=== PATIENT | female | born 1985 | race Caucasian/White ===

== ENCOUNTER → 2016-08-10 | Outpatient (REF) | payer OTHER ==
[~2016-08-10] MED LIST: MOTR200T44 PO; NEXI40CA PO; PERC5TAB6 PO; PRENTAB55 PO
== END ==
LOC: M LAB REF 12:09
PROVIDERS: ATTEND Physician Assistant
DX: N39.0 Urinary tract infection, site not specified (principal)

== ENCOUNTER 2017-04-06 05:48 | Emergency (ER) | payer OTHER ==
[2017-04-06 06:47] LABS: PROTEIN, URINE MANUAL REFLEX 3+ mg/dL (NEGATIVE)
[2017-04-06 06:48] LABS: BILIRUBIN, URINE MANUAL NEGATIVE (NEGATIVE); BLOOD URINE MANUAL RFX POSITIVE (NEGATIVE); GLUCOSE, URINE (UA) MANUAL NEGATIVE (NEGATIVE); KETONE, URINE MANUAL NEGATIVE (NEGATIVE); MICROSCOPIC INDICATED? RFX YES (NO); NITRITE, URINE MANUAL RFX TRACE (NEGATIVE); UROBILINOGEN, URINE MANUAL NORMAL (NORMAL)
[2017-04-06 06:49] LABS: BACTERIA, URINE MOD AMOUNT; HYALINE CAST, URINE NONE SEEN /lpf (0-1); MICROSCOPIC EXAM PERFORMED; RBC, URINE TNTC /hpf (0-3); SQUAMOUS EPITHELIAL CELL URINE MOD AMOUNT /hpf (SMALL AMT); WBC, URINE MAN RFX TNTC /hpf (0-3)
[2017-04-06] MEDS: PHENAZOPYRIDINE 100 MG TAB PO (06:54)
[2017-04-06] MEDS: NITROFURANTOIN (MACROBID) 100 MG CAP PO (06:54)
== END 2017-04-06 06:56 | disposition home or self-care (01) ==
LOC: M ED 05:48
DX: N30.91 Cystitis, unspecified with hematuria (principal); R56.9 Unspecified convulsions; Z79.899 Other long term (current) drug therapy; Z88.8 Allergy status to other drugs, medicaments and biological substances
CPT/HCPCS: 81000

== ENCOUNTER 2017-10-30 10:53 | Day surgery (SDC) | payer OTHER ==
[2017-10-30] MEDS: NS 1,000 ML IV (11:26)
[2017-10-30] MEDS ORDERED: diphenhydrAMINE INJ 50MG/ML VIAL (J1200) As Ordered (11:33)
[2017-10-30] MEDS ORDERED: LIDOCAINE 2% INJ 100 MG/5 ML SDV (FOR ANES.) As Ordered (11:34)
[2017-10-30] MEDS ORDERED: PROPOFOL 200 MG/20 ML VIAL As Ordered ×2 (11:34→12:19)
== END 2017-10-30 12:41 | disposition home or self-care (01) ==
LOC: M OPP 10:53
DX: K21.9 Gastro-esophageal reflux disease without esophagitis (principal); K31.89 Other diseases of stomach and duodenum; K29.70 Gastritis, unspecified, without bleeding; R12 Heartburn; Z88.8 Allergy status to other drugs, medicaments and biological substances; Z79.899 Other long term (current) drug therapy; Z80.52 Family history of malignant neoplasm of bladder; Z80.3 Family history of malignant neoplasm of breast; Z80.8 Family history of malignant neoplasm of other organs or systems
CPT/HCPCS: 91035

== ENCOUNTER → 2018-01-10 | Outpatient (REF) | payer OTHER | LOC: M LAB REF 13:32 | DX: N39.0 Urinary tract infection, site not specified (principal) ==

== ENCOUNTER → 2019-02-02 | Outpatient (REF) | payer OTHER ==
[~2019-02-02] MED LIST changes: +MACR100C43 PO; +MULT1TAB18 PO; +NITR100C2 PO; +PERC5TAB12 PO; -PERC5TAB6 PO; +PYRI1TAB5 PO; +ZANT150T40 PO
== END ==
LOC: M LAB REF 18:57
PROVIDERS: ATTEND Physician Assistant Medical
DX: N39.0 Urinary tract infection, site not specified (principal)

== ENCOUNTER 2019-02-04 09:29 | Emergency (ER) | payer OTHER ==
[~2019-02-04] VITALS: Ht 167.6 cm; Wt 61.8 kg
[~2019-02-04 09:29] MED LIST changes: -MACR100C43 PO
[2019-02-04 09:30] VITALS: BP 134/79
[2019-02-04] MEDS ORDERED: MACR100C43 PO (09:35)
[2019-02-04 10:28] LABS: BASO % 0.5 % (0.0-1.0); EOS # 0.1 10^3/uL (0.0-0.5); EOS % 1.3 % (0.0-3.0); HEMATOCRIT 42.3 % (36.0-47.0); LYMPH # 1.2 10^3/uL (1.5-5.0); LYMPH % 19.7 % (24.0-44.0); MEAN CORPUSCULAR HEMOGLOBIN 33.3 pg (27.0-33.0); MEAN CORPUSCULAR HGB CONC 33.1 g/dl (32.0-36.5); MEAN CORPUSCULAR VOLUME 100.5 fl (80.0-96.0); MONO # 0.5 10^3/uL (0.0-0.8); MONO % 7.3 % (0.0-5.0); NEUTROPHILS # 4.4 10^3/uL (1.5-8.5); NEUTROPHILS % 70.9 % (36.0-66.0); PLATELET COUNT, AUTOMATED 282 10^3/uL (150-450); RED BLOOD COUNT 4.21 10^6/uL (4.00-5.40); WHITE BLOOD COUNT 6.2 10^3/uL (4.0-10.0)
[2019-02-04 10:57] LABS: ALT/SGPT 18 U/L (12-78); BILIRUBIN,TOTAL 0.4 MG/DL (0.2-1.0); BLOOD UREA NITROGEN 8 MG/DL (7-18); CALCIUM LEVEL 8.9 MG/DL (8.5-10.1); CARBON DIOXIDE LEVEL 24 MEQ/L (21-32); CHLORIDE LEVEL 107 MEQ/L (98-107); GLOMERULAR FILTRATION RATE > 60.0 (>60); GLUCOSE, FASTING 109 MG/DL (70-100); SODIUM LEVEL 141 MEQ/L (136-145); TOTAL PROTEIN 7.4 GM/DL (6.4-8.2)
[2019-02-04 11:17] LABS: HEPATITIS B SURFACE ANTIBODY POSITIVE (POSITIVE)
[2019-02-04 11:27] LABS: HEPATITIS B SURFACE ANTIGEN NEGATIVE (NEGATIVE)
[2019-02-04 11:56] LABS: HEPATITIS C VIRUS ABY INDEX 0.2 INDEX (<0.8)
[2019-02-04 19:36] LABS: HCG, SERUM QUALITATIVE NEGATIVE (NEGATIVE)
== END 2019-02-04 10:28 | disposition home or self-care (01) ==
LOC: M ED 09:29
DX: Z77.21 Contact with and (suspected) exposure to potentially hazardous body fluids (principal)

== ENCOUNTER → 2019-02-11 | Outpatient (REF) | payer OTHER ==
[~2019-02-11] MED LIST changes: +MACR100C43 PO
== END ==
LOC: M LAB REF 13:17
PROVIDERS: ATTEND Physician Assistant
DX: N39.0 Urinary tract infection, site not specified (principal)

== ENCOUNTER → 2019-03-02 | Outpatient (CLI) | payer OTHER ==
--- NOTE | 2019-03-03 03:00 | REP ---
Clinical: Pelvic and perineal pain. Technique: Transabdominal pelvic ultrasound followed by transvaginal examination for better evaluation of the endometrium and adnexa with color Doppler evaluation of the ovaries. Findings: Normal anteverted uterus measures 7.7 x 4.8 x 5.5 cm. Endometrial complex measures 11 mm thickness. A small 7 mm endometrial polyp cannot definitively be excluded. The bilateral ovaries are normal in appearance and vascularity without torsion. Right ovary measures 2.3 x 1.6 x 2.5 cm (RI 0.65). Left ovary measures 2.5 x 2.3 x 2.7 cm (RI 0.66). Bladder is normal and measures 11.2 x 7.4 x 10.3 cm. Impression: 1. Relatively normal examination although small 7 mm endometrial polyp versus focal hyperplasia cannot be excluded. Electronically Signed by Juan Hearn MD 03/03/2019 02:51 A
== END ==
LOC: M RAD 10:57
PROVIDERS: ATTEND Obstetrics & Gynecology
DX: R10.2 Pelvic and perineal pain (principal)

== ENCOUNTER 2019-04-06 12:48 | Day surgery (SDC) | payer OTHER ==
[~2019-04-06] VITALS: Ht 167.6 cm; Wt 61.4 kg
[~2019-04-06 12:48] MED LIST changes: +LR 1,000 ML IV ONE; +MULTCAP PO
[2019-04-06 13:54] LABS: HEMATOCRIT 39.2 % (36.0-47.0); HEMOGLOBIN 13.1 g/dl (12.0-15.5); MEAN CORPUSCULAR HGB CONC 33.4 g/dl (32.0-36.5); MEAN CORPUSCULAR VOLUME 98.7 fl (80.0-96.0); PLATELET COUNT, AUTOMATED 297 10^3/uL (150-450); RED BLOOD COUNT 3.97 10^6/uL (4.00-5.40); WHITE BLOOD COUNT 6.3 10^3/uL (4.0-10.0)
[2019-04-06 14:18] LABS: BLOOD UREA NITROGEN 11 MG/DL (7-18); CARBON DIOXIDE LEVEL 28 MEQ/L (21-32); CHLORIDE LEVEL 111 MEQ/L (98-107); CREATININE FOR GFR 0.84 MG/DL (0.55-1.30); GLOMERULAR FILTRATION RATE > 60.0 (>60); GLUCOSE, FASTING 88 MG/DL (70-100); POTASSIUM SERUM 4.1 MEQ/L (3.5-5.1); SODIUM LEVEL 142 MEQ/L (136-145)
[2019-04-06] MEDS ORDERED: fentaNYL 100 MCG/2 ML INJECTION (J3010) As Ordered ONE (15:58)
[2019-04-06] MEDS ORDERED: METOCLOPRAMIDE INJ 10MG/2ML VIAL (J2765) As Ordered ONE (15:58)
[2019-04-06] MEDS ORDERED: ONDANSETRON 4MG/2ML VIAL (J2405) As Ordered ONE (15:58)
[2019-04-06] MEDS ORDERED: KETOROLAC 60 MG/2 ML VIAL (J1885) As Ordered ONE (15:58)
[2019-04-06] MEDS ORDERED: LIDOCAINE 2% INJ 100 MG/5 ML SDV (FOR ANES.) As Ordered ONE (15:58)
[2019-04-06] MEDS ORDERED: ACETAMINOPHEN 1000MG 100ML IV BTL (OFIRMEV) (J0131 PER 10MG) As Ordered ONE (15:58)
[2019-04-06] MEDS ORDERED: MIDAZOLAM INJ 2 MG/2 ML VIAL (J2250) As Ordered ONE (15:58)
[2019-04-06] MEDS ORDERED: propofoL 200 MG/20 ML VIAL As Ordered ONE (15:58)
[2019-04-06] MEDS ORDERED: dexameTHASONE 4 MG/ML 1ML VIAL (J1100) As Ordered ONE (15:58)
[2019-04-06] MEDS ORDERED: DESFLURANE 240 ML INHALANT As Ordered ONE (16:09)
[2019-04-06] MEDS ORDERED: KETOROLAC 30 MG/ML VIAL (J1885) IV PRN (16:15)
[2019-04-06] MEDS ORDERED: LR 1,000 ML IV SCH ×2 (16:18→16:30)
[2019-04-06] MEDS ORDERED: PERCOCET PO (16:22)
[2019-04-06] MEDS ORDERED: oxyCODONE 5MG TAB As Ordered ONE (16:28)
[2019-04-06] MEDS ORDERED: PERCOCET 5MG/325MG TAB PO PRN ×2 (16:30)
[2019-04-06] MEDS ORDERED: fentaNYL 100 MCG/2 ML INJECTION (J3010) IV PRN (16:30)
[2019-04-06] MEDS ORDERED: ONDANSETRON 4MG/2ML VIAL (J2405) IV PRN (16:30)
[2019-04-06] MEDS ORDERED: METOCLOPRAMIDE INJ 10MG/2ML VIAL (J2765) IV PRN (16:30)
[2019-04-06] MEDS ORDERED: oxyCODONE 5MG TAB PO PRN (16:45)
[2019-04-06 17:25] VITALS: BP 117/57
[2019-04-07] MEDS ORDERED: IBUPROFEN 800 MG TAB PO SCH
--- NOTE | 2019-04-07 10:28 | RO ---
DATE OF PROCEDURE: 04/06/2019 Rupinder is a 33-year-old female with extensive history of heavy and prolonged cycle with an endometrial polyp on ultrasound. After counseling. a decision was made for dilation and curettage (D and C), hysteroscopy and NovaSure ablation. PREOPERATIVE DIAGNOSIS: 1. Heavy and prolonged menstrual cycle. 2. Endometrial polyp. POSTOPERATIVE DIAGNOSIS: 1. Heavy and prolonged menstrual cycle. 2. Endometrial polyp. PROCEDURE 1. D and C. 2. Hysteroscopy. 3. NovaSure endometrial ablation. SURGEON: Dr. Porfirio Olivares DIALYSIS EQUIPMENT TECHNICIAN: ANESTHESIA: General. COMPLICATIONS: None. ESTIMATED BLOOD LOSS: Less than 10 mL. FINDINGS: Normal uterine cavity, no evidence of endometrial polyp. PROCEDURE: After obtaining informed consent, the patient was taken to the operating room where anesthetic was found to be adequate. She was then draped and prepped in the usual sterile fashion in the dorsal lithotomy position. At this point, a straight catheter of the bladder was performed for approximately 100 mL of clear urine. A weighted speculum was placed. Using a Membreno retractor, the anterior lip of the cervix was then grasped with a single-tooth tenaculum. The uterus was sounded to approximately 7-8 cm in size, giving a cavity length of 5. The cervix was serially dilated. A hysteroscope was inserted with the above-noted findings. At this point, the hysteroscope was removed. A sharp curettage of the endometrial lining was done and the NovaSure device was then inserted. The cavity length was set to 5, the cavity width to 3.9. A cavity test was performed and the endometrial ablation cycle was then started. The cycle lasted less than 60 seconds. Good ablative process noted. Good hemostasis noted. The patient tolerated the procedure well. She was then transferred to the recovery room in stable condition.
== END 2019-04-06 17:30 | disposition home or self-care (01) ==
LOC: M SDC 12:48
PROVIDERS: ATTEND Obstetrics & Gynecology
DX: N92.1 Excessive and frequent menstruation with irregular cycle (principal); Z87.891 Personal history of nicotine dependence
CPT/HCPCS: 36415; 58563; 80048; 81025; 85027; 86850; 86900; 86901; 88305; J0131; J1100; J1885; J2250; J2405; J2765; J3010

== ENCOUNTER → 2019-06-22 | Outpatient (REF) | payer OTHER ==
[~2019-06-22] MED LIST changes: -LR 1,000 ML IV ONE; +PERCOCET PO
[2019-06-22 18:47] LABS: APPEARANCE, URINE CLEAR (CLEAR); BACTERIA, URINE AUTO 1+ (NEGATIVE); BILIRUBIN, URINE AUTO NEGATIVE (NEGATIVE); BLOOD, URINE BLOOD NEGATIVE (NEGATIVE); COLOR, URINE YELLOW (YELLOW); GLUCOSE, URINE (UA) AUTO NEGATIVE (NEGATIVE); KETONE, URINE AUTO TRACE mg/dL (NEGATIVE); LEUKOCYTE ESTERASE, URINE AUTO NEGATIVE (NEGATIVE); NITRITE, URINE AUTO NEGATIVE (NEGATIVE); PROTEIN, URINE AUTO NEGATIVE (NEGATIVE); RBC, URINE AUTO 1 /HPF (0-3); SPECIFIC GRAVITY URINE AUTO 1.009 (1.002-1.035); SQUAMOUS EPITHELIAL CELL UR AU 1 /HPF (0-6); TRANSITIONAL EPITHELIAL AUTO <1 /HPF; UROBILINOGEN, URINE AUTO 0.2 mg/dL (0.0-2.0); WBC, URINE AUTO 1 /HPF (0-3)
== END ==
LOC: M SMT 17:19
PROVIDERS: ATTEND Nurse Practitioner Women's Health
DX: R39.15 Urgency of urination (principal); R30.0 Dysuria

== ENCOUNTER → 2020-03-08 | Outpatient (CLI) | payer OTHER ==
[2020-03-08 12:06] LABS: ALT/SGPT 156 U/L (12-78); BILIRUBIN,TOTAL 0.7 MG/DL (0.2-1.0); BLOOD UREA NITROGEN 13 MG/DL (7-18); CALCIUM LEVEL 9.7 MG/DL (8.5-10.1); CARBON DIOXIDE LEVEL 28 MEQ/L (21-32); CHLORIDE LEVEL 102 MEQ/L (98-107); CHOLESTEROL LEVEL 245 MG/DL (<200); CHOLESTEROL RISK RATIO 1.737 (<5); CREATININE FOR GFR 0.86 MG/DL (0.55-1.30); FREE T4 0.88 NG/DL (0.76-1.46); GLOMERULAR FILTRATION RATE > 60.0 (>60); GLUCOSE, FASTING 102 MG/DL (70-100); HDL CHOLESTEROL 141 MG/DL (>40); LDL CHOLESTEROL 93 MG/DL (<100); NON-HDL-C 104 MG/DL; POTASSIUM SERUM 4.2 MEQ/L (3.5-5.1); SODIUM LEVEL 136 MEQ/L (136-145); TOTAL PROTEIN 7.7 GM/DL (6.4-8.2); TRIGLYCERIDES LEVEL 56 MG/DL (<150)
== END ==
LOC: M LAB 10:10
PROVIDERS: ATTEND Nurse Practitioner Family
DX: Z00.00 Encounter for general adult medical examination without abnormal findings (principal)

== ENCOUNTER → 2020-08-09 | Outpatient (CLI) | payer OTHER ==
[2020-08-09 15:13] LABS: BASO % 0.5 % (0.0-1.0); EOS % 0.5 % (0.0-3.0); HEMATOCRIT 41.8 % (36.0-47.0); LYMPH # 1.8 10^3/uL (1.5-5.0); LYMPH % 20.5 % (24.0-44.0); MEAN CORPUSCULAR HEMOGLOBIN 32.9 pg (27.0-33.0); MEAN CORPUSCULAR HGB CONC 33.5 g/dl (32.0-36.5); MEAN CORPUSCULAR VOLUME 98.4 fl (80.0-96.0); MONO # 0.6 10^3/uL (0.0-0.8); MONO % 6.2 % (2.0-8.0); NEUTROPHILS # 6.4 10^3/uL (1.5-8.5); NEUTROPHILS % 72.1 % (36.0-66.0); PLATELET COUNT, AUTOMATED 298 10^3/uL (150-450); RED BLOOD COUNT 4.25 10^6/uL (4.00-5.40); WHITE BLOOD COUNT 8.8 10^3/uL (4.0-10.0)
[2020-08-09 15:46] LABS: FREE T4 0.92 NG/DL (0.76-1.46)
[2020-08-09 16:14] LABS: ERYTHROCYTE SEDIMENTATION RATE 3 mm/hr (0-20)
[2020-08-09 16:29] LABS: HIV 1&2 SCREEN CENTAUR NEGATIVE (NEGATIVE)
== END ==
LOC: M LAB 14:32
PROVIDERS: ATTEND Nurse Practitioner Family
DX: R59.0 Localized enlarged lymph nodes (principal)

== ENCOUNTER → 2020-08-10 | Outpatient (CLI) | payer OTHER ==
--- NOTE | 2020-08-10 15:25 | REP ---
INDICATION: R BREAST LUMP/AXILLARY TAIL/ENLARGED LYMPH NODES; LUMP OF R BREAST AXILLARY TAIL/ENLARGED LYMPH NODES. COMPARISON: No comparison breast imaging. TECHNIQUE: A skin marker is affixed to the skin at the site of the patient's symptoms. Implant included an implant displaced craniocaudal and mediolateral oblique views are acquired. 3D tomography is utilized. Targeted right breast sonography is performed. This mammogram was interpreted with the aid of an FDA-approved computer-aided detection system. FINDINGS: On mammography of the right breast, retropectoral augmentation implant margins are smooth. Breast parenchyma is heterogeneously dense in a pattern which may inhibit the sensitivity of mammography. However, there is no visible mass, architectural distortion, or worrisome microcalcifications. No skin changes appreciated. No mammographically suspicious finding is seen in the area of the palpable lump and pain. The Volpara volumetric breast density pattern is D. Targeted ultrasound: Targeted right breast sonography is performed in the region of the patient's symptoms in the axillary tail and upper outer quadrant region. Heterogeneous fibroglandular background echotexture is seen. No cyst or mass is observed. No suspicious sonographic finding. IMPRESSION: BIRADS/ACR category 2 benign right breast mammographic and sonographic findings. This patient's Tyrer-Cuzick lifetime breast cancer risk assessment score is 13.2%. RECOMMENDATION: Clinical follow-up regarding patient's symptoms. Bilateral screening mammography recommended for woman over 40.. The patient letter being requested is M2 dense. <Electronically signed by Bradford Nunn > 08/10/20 [id number]
== END ==
LOC: M WHC 13:29
PROVIDERS: ATTEND Nurse Practitioner Family
DX: R59.0 Localized enlarged lymph nodes (principal); Z98.82 Breast implant status

== ENCOUNTER 2020-08-17 21:08 | Emergency (ER) | payer OTHER ==
[~2020-08-17] VITALS: Ht 170.2 cm; Wt 64.0 kg
[2020-08-17 21:49] LABS: BASO # 0.1 10^3/uL (0.0-0.2); BASO % 0.7 % (0.0-1.0); EOS # 0.1 10^3/uL (0.0-0.5); EOS % 1.7 % (0.0-3.0); HEMATOCRIT 39.9 % (36.0-47.0); HEMOGLOBIN 13.5 g/dl (12.0-15.5); LYMPH # 2.1 10^3/uL (1.5-5.0); LYMPH % 25.9 % (24.0-44.0); MEAN CORPUSCULAR HEMOGLOBIN 33.3 pg (27.0-33.0); MEAN CORPUSCULAR HGB CONC 33.8 g/dl (32.0-36.5); MEAN CORPUSCULAR VOLUME 98.3 fl (80.0-96.0); MONO # 0.6 10^3/uL (0.0-0.8); MONO % 7.5 % (2.0-8.0); NEUTROPHILS # 5.2 10^3/uL (1.5-8.5); PLATELET COUNT, AUTOMATED 316 10^3/uL (150-450); RED BLOOD COUNT 4.06 10^6/uL (4.00-5.40); WHITE BLOOD COUNT 8.2 10^3/uL (4.0-10.0)
[2020-08-17 22:19] LABS: ALBUMIN 4.1 GM/DL (3.2-5.2); BILIRUBIN,DIRECT 0.1 MG/DL (0.0-0.2); BILIRUBIN,TOTAL 0.3 MG/DL (0.2-1.0); TOTAL PROTEIN 7.3 GM/DL (6.4-8.2)
[2020-08-17] MEDS ORDERED: IBUP-1022 PO (23:23)
[2020-08-17] MEDS ORDERED: SERT50TA29 PO (23:23)
--- NOTE | 2020-08-17 23:35 | REPVR ---
PROCEDURE INFORMATION: Exam: CT Abdomen And Pelvis Without Contrast Exam date and time: 08/17/2020 10:46 PM Age: 34 years old Clinical indication: Abdominal pain; Flank; Right; Additional info: Right flank pain TECHNIQUE: Imaging protocol: Computed tomography of the abdomen and pelvis without contrast. Axial, coronal and sagittal reformatted images were created and reviewed. Radiation optimization: All CT scans at this facility use at least one of these dose optimization techniques: automated exposure control; mA and/or kV adjustment per patient size (includes targeted exams where dose is matched to clinical indication); or iterative reconstruction. COMPARISON: US PELVIC NON-OB COMPLETE 03/02/2019 11:05 AM FINDINGS: Liver: Coarse calcified granuloma in the left hepatic lobe. Gallbladder and bile ducts: No radiodense gallstones. No biliary ductal dilatation. Pancreas: Unremarkable. Spleen: Unremarkable. Adrenal glands: Normal. No mass. Kidneys and ureters: Mild to moderate right-sided hydroureteronephrosis and perinephric/periureteral edema, secondary to a 6 mm distal right ureteral calculus (axial image 122 and coronal image 47). Stomach and bowel: No bowel wall thickening. No obstruction. No pneumatosis. Appendix: Status post appendectomy. Intraperitoneal space: No free fluid. No organized fluid collection. No free air. Vasculature: Unremarkable. No aneurysm. Lymph nodes: No pathologically enlarged lymph nodes. Urinary bladder: Unremarkable as visualized. Reproductive: Unremarkable. Bones/joints: No acute osseous abnormality. Soft tissues: Breast implants in place. IMPRESSION: 1. Mild to moderate right-sided hydroureteronephrosis and perinephric/periureteral edema, secondary to a 6 mm distal right ureteral calculus. 2. Additional findings, as above. Electronically signed by: He Barnhart On 08/17/2020 23:35:27 PM
[2020-08-18] MEDS ORDERED: ONDA4TAB6 PO (00:06)
[2020-08-18] MEDS ORDERED: KETO10TAB PO (00:06)
[2020-08-18] MEDS ORDERED: FLOM0.4C39 PO (00:06)
[2020-08-18] MEDS ORDERED: CEFD1CAP8 PO (00:06)
[2020-08-18] MEDS ORDERED: PERC5TAB12 PO (00:06)
[2020-08-18] MEDS ORDERED: OXYCODONE/APAP 5MG/325MG(BULK FOR ED) 1 TABLET PO ONE (00:10)
[2020-08-18] MEDS ORDERED: TAMSULOSIN 0.4 MG CAP PO ONE (00:10)
[2020-08-18] MEDS ORDERED: ONDANSETRON 4 MG ORAL DISINTEGRATING TAB PO ONE (00:10)
[2020-08-18] MEDS ORDERED: KETOROLAC TROMETHAMINE 10 MG TAB PO ONE (00:10)
[2020-08-18 00:13] VITALS: BP 120/66
[2020-08-18] MEDS ORDERED: CEFDINIR 300 MG CAP (OMNICEF) PO ONE (00:30)
== END 2020-08-18 00:49 | disposition home or self-care (01) ==
LOC: M ED 21:08
DX: N20.1 Calculus of ureter (principal); N13.2 Hydronephrosis with renal and ureteral calculous obstruction
CPT/HCPCS: 74176; 80047; 80076; 81001; 83690; 84702; 85025; 87086; 99284; Q0162

== ENCOUNTER → 2020-08-31 | Outpatient (CLI) | payer OTHER ==
[~2020-08-31] MED LIST changes: +CEFD1CAP8 PO; +FLOM0.4C39 PO; +IBUP-1022 PO; +KETO10TAB PO; +ONDA4TAB6 PO; +SERT50TA29 PO
== END ==
LOC: M LABSMTC 09:51
PROVIDERS: ATTEND Anesthesiology
DX: Z01.812 Encounter for preprocedural laboratory examination (principal); Z20.822 Contact with and (suspected) exposure to COVID-19

== ENCOUNTER → 2020-08-31 | Outpatient (CLI) | payer OTHER ==
[2020-08-31 17:20] LABS: APPEARANCE, URINE CLEAR (CLEAR); BACTERIA, URINE AUTO 1+ (NEGATIVE); BILIRUBIN, URINE AUTO NEGATIVE (NEGATIVE); BLOOD, URINE BLOOD NEGATIVE (NEGATIVE); COLOR, URINE YELLOW (YELLOW); GLUCOSE, URINE (UA) AUTO NEGATIVE (NEGATIVE); KETONE, URINE AUTO NEGATIVE (NEGATIVE); LEUKOCYTE ESTERASE, URINE AUTO NEGATIVE (NEGATIVE); NITRITE, URINE AUTO NEGATIVE (NEGATIVE); PROTEIN, URINE AUTO NEGATIVE (NEGATIVE); RBC, URINE AUTO 2 /HPF (0-3); SPECIFIC GRAVITY URINE AUTO 1.014 (1.002-1.035); SQUAMOUS EPITHELIAL CELL UR AU 1 /HPF (0-6); UROBILINOGEN, URINE AUTO 0.2 mg/dL (0.0-2.0); WBC, URINE AUTO 3 /HPF (0-3)
== END ==
LOC: M LAB 16:57
PROVIDERS: ATTEND Urology
DX: N13.2 Hydronephrosis with renal and ureteral calculous obstruction (principal); N39.0 Urinary tract infection, site not specified

== ENCOUNTER → 2020-09-01 | Outpatient (CLI) | payer OTHER ==
[2020-09-01 10:26] LABS: HEMATOCRIT 41.8 % (36.0-47.0); HEMOGLOBIN 13.7 g/dl (12.0-15.5); MEAN CORPUSCULAR HEMOGLOBIN 33.3 pg (27.0-33.0); MEAN CORPUSCULAR HGB CONC 32.8 g/dl (32.0-36.5); MEAN CORPUSCULAR VOLUME 101.5 fl (80.0-96.0); PLATELET COUNT, AUTOMATED 258 10^3/uL (150-450); RED BLOOD COUNT 4.12 10^6/uL (4.00-5.40); WHITE BLOOD COUNT 5.6 10^3/uL (4.0-10.0)
[2020-09-01 10:41] LABS: INR 0.91; PROTHROMBIN TIME 12.4 SECONDS (12.5-14.3)
[2020-09-01 10:42] LABS: PARTIAL THROMBOPLASTIN TIME 28.1 SECONDS (24.2-38.5)
[2020-09-01 10:50] LABS: BLOOD UREA NITROGEN 18 MG/DL (7-18); CARBON DIOXIDE LEVEL 25 MEQ/L (21-32); CHLORIDE LEVEL 109 MEQ/L (98-107); GLOMERULAR FILTRATION RATE > 60.0 (>60); GLUCOSE, FASTING 104 MG/DL (70-100); POTASSIUM SERUM 4.5 MEQ/L (3.5-5.1); SODIUM LEVEL 141 MEQ/L (136-145)
[2020-09-01 11:12] LABS: HCG, SERUM QUALITATIVE NEGATIVE (NEGATIVE)
== END ==
LOC: M LAB 09:47
PROVIDERS: ATTEND Nurse Practitioner Women's Health
DX: Z01.818 Encounter for other preprocedural examination (principal); N13.2 Hydronephrosis with renal and ureteral calculous obstruction

== ENCOUNTER 2020-09-03 10:31 | Day surgery (SDC) | payer OTHER ==
[~2020-09-03] VITALS: Ht 167.6 cm; Wt 63.9 kg
[~2020-09-03 10:31] MED LIST changes: +ceFAZolin SOD 2 GM in IV 1 EA IV ONE
[2020-09-03] MEDS ORDERED: MIDAZOLAM INJ 2MG/2ML VIAL (J2250 PER 1MG) As Ordered ONE (11:03)
[2020-09-03] MEDS ORDERED: fentaNYL 100 MCG/2 ML INJECTION (J3010) As Ordered ONE (11:04)
[2020-09-03] MEDS ORDERED: CONRAY-60 60% 50ML VIAL (Q9961) As Ordered ONE (11:28)
[2020-09-03] MEDS ORDERED: ACETAMINOPHEN 1000MG 100ML IV BTL (OFIRMEV) (J0131 PER 10MG) As Ordered ONE (11:57)
[2020-09-03] MEDS ORDERED: propofoL 200 MG/20 ML VIAL As Ordered ONE (11:57)
[2020-09-03] MEDS ORDERED: KETOROLAC 60MG 2ML VIAL As Ordered ONE (12:05)
[2020-09-03] MEDS ORDERED: dexameTHASONE 4 MG/ML 1ML VIAL (J1100 PER 1MG) As Ordered ONE (12:05)
[2020-09-03] MEDS ORDERED: ONDANSETRON 4MG/2ML VIAL As Ordered ONE (12:05)
[2020-09-03] MEDS ORDERED: LIDOCAINE 2% 100MG/5ML SDV (FOR ANES.) As Ordered ONE (12:06)
[2020-09-03] MEDS ORDERED: SUGAMMADEX SODIUM 500 MG/5 ML VIAL (BRIDION) As Ordered ONE (12:06)
[2020-09-03] MEDS ORDERED: ePHEDrine SULFATE 25 MG/5 ML(5MG/ML) SYRINGE As Ordered ONE (12:11)
[2020-09-03] MEDS ORDERED: LR 1,000 ML IV SCH (12:40)
[2020-09-03] MEDS ORDERED: PERCOCET 5MG/325MG TAB PO PRN (12:40)
[2020-09-03] MEDS ORDERED: ONDANSETRON 4MG/2ML VIAL IV PRN (12:40)
[2020-09-03] MEDS ORDERED: fentaNYL 100 MCG/2 ML INJECTION (J3010) IV PRN (12:40)
[2020-09-03] MEDS ORDERED: oxyCODONE 5MG TAB PO PRN (12:40)
[2020-09-03 13:25] VITALS: BP 116/69
--- NOTE | 2020-09-03 14:36 | RO ---
OPERATIVE NOTE DATE OF OPERATION: 09/03/2020 PRE-OPERATIVE DIAGNOSIS: Right ureteral stone. POST-OPERATIVE DIAGNOSIS: Right ureteral stone. PROCEDURES: 1. Cystoscopy. 2. Right ureteroscopy with laser lithotripsy and basket extraction of stones. 3. Right retrograde pyelogram with intraoperative interpretative images. SURGEON: Willie Ann MD. RELAY MOTORMAN: None. ANESTHESIA: General. OPERATIVE INDICATIONS: This is a 35-year-old female who was found to have an obstructing 6-mm distal right ureteral stone on recent CAT scan. She was brought to the operating room today for treatment. DESCRIPTION OF PROCEDURE: The patient was brought to the operating room and general anesthesia was induced. Prophylactic antibiotics were infused. She was then placed in the dorsal lithotomy position, prepped, and draped in the usual sterile fashion. A rigid cystoscope was inserted into the urethral meatus and advanced to the bladder. A guidewire was advanced up the right collecting system. I then went up the right collecting system with a short semi-rigid ureteroscope, and within the distal ureter, a 6-mm stone was seen. This stone was fragmented into smaller pieces using a 272 micron laser fiber. All fragments were removed using a basket. Once satisfied that all of the fragments were removed, a retrograde pyelogram was performed and notable for mild right hydroureteronephrosis with no extravasation. There were no filling defects. I then withdrew the ureteroscope and there did not appear to be much edema inside the ureter. I therefore decided not to place a ureteral stent. The guidewire was then removed. I then examined the right ureteral orifice and it effluxed without any difficulty. At this point, the bladder was emptied of all fluids and this marked the conclusion of the procedure. The patient was then taken out of the dorsal lithotomy position, awakened from anesthesia, and transported to the recovery room in stable condition. ESTIMATED BLOOD LOSS: 5 mL. COMPLICATIONS: None. SPECIMEN: Kidney stone fragments. PLAN: The patient will follow up in the Urology Clinic in a few weeks for a postoperative visit.
--- NOTE | 2020-09-03 18:08 | REP ---
INDICATION: RIGHT STENT PLACEMENT. COMPARISON: CT 08/18/2011 TECHNIQUE: Two images from C-arm fluoroscopy provided for retrograde pyelogram FINDINGS: Initial image shows wire in an upper pole calyx on the right side and a catheter into the proximal right ureter. Contrast is seen with distended ureter in the mild the to moderate the hydronephrosis with caliceal blunting. The 2nd image shows the drainage of the contrast with normal appearance of the collecting system a stent is the not visible with contrast in the ureter without abnormal distention. Fluoroscopy time 0.7 seconds. IMPRESSION: 1. Status post retrograde pyelogram with distended collecting system on initial image which has drained on the 2nd image, normal appearance. I do not see stent in the collecting system or ureter the 2nd image with normal caliber and drainage of collecting system. <Electronically signed by Herminio Wilkinson > 09/03/20 [id number]
== END 2020-09-03 13:48 | disposition home or self-care (01) ==
LOC: M SDC 10:31
PROVIDERS: ATTEND Urology
DX: N20.1 Calculus of ureter (principal); G40.909 Epilepsy, unspecified, not intractable, without status epilepticus; Z79.899 Other long term (current) drug therapy; Z87.891 Personal history of nicotine dependence
CPT/HCPCS: 52356; 74420; 82365; 88300; C1769; J0131; J0690; J1100; J1885; J2250; J2405; J3010; Q9961

== ENCOUNTER 2020-09-06 01:49 | Emergency (ER) | payer OTHER ==
[~2020-09-06] VITALS: Ht 167.6 cm; Wt 65.7 kg
[~2020-09-06 01:49] MED LIST changes: -ceFAZolin SOD 2 GM in IV 1 EA IV ONE
[2020-09-06] MEDS ORDERED: HYDROMORPHONE HCL 0.5 MG/ 0.5 ML SYRINGE (J1170 PER 1) IV PRN (02:50)
[2020-09-06] MEDS ORDERED: NS 1,000 ML IV ONE ×2 (02:50→05:55)
[2020-09-06] MEDS ORDERED: ONDANSETRON 4MG/2ML VIAL IV ONE (02:50)
[2020-09-06 03:13] LABS: BASO # 0.1 10^3/uL (0.0-0.2); BASO % 0.5 % (0.0-1.0); EOS # 0.2 10^3/uL (0.0-0.5); EOS % 2.1 % (0.0-3.0); HEMATOCRIT 37.3 % (36.0-47.0); HEMOGLOBIN 12.5 g/dl (12.0-15.5); LYMPH # 2.5 10^3/uL (1.5-5.0); LYMPH % 27.3 % (24.0-44.0); MEAN CORPUSCULAR HEMOGLOBIN 33.5 pg (27.0-33.0); MEAN CORPUSCULAR HGB CONC 33.5 g/dl (32.0-36.5); MONO # 0.7 10^3/uL (0.0-0.8); MONO % 7.3 % (2.0-8.0); NEUTROPHILS # 5.8 10^3/uL (1.5-8.5); NEUTROPHILS % 62.6 % (36.0-66.0); PLATELET COUNT, AUTOMATED 224 10^3/uL (150-450); RED BLOOD COUNT 3.73 10^6/uL (4.00-5.40); WHITE BLOOD COUNT 9.2 10^3/uL (4.0-10.0)
[2020-09-06 03:48] LABS: ALBUMIN 3.8 GM/DL (3.2-5.2); ALT/SGPT 38 U/L (12-78); BILIRUBIN,DIRECT < 0.1 MG/DL (0.0-0.2); BILIRUBIN,TOTAL 0.3 MG/DL (0.2-1.0); BLOOD UREA NITROGEN 18 MG/DL (7-18); CALCIUM LEVEL 8.2 MG/DL (8.5-10.1); CARBON DIOXIDE LEVEL 24 MEQ/L (21-32); CHLORIDE LEVEL 106 MEQ/L (98-107); CREATININE FOR GFR 0.79 MG/DL (0.55-1.30); GLOMERULAR FILTRATION RATE > 60.0 (>60); GLUCOSE, FASTING 102 MG/DL (70-100); LIPASE 45 U/L (73-393); POTASSIUM SERUM 4.7 MEQ/L (3.5-5.1); SODIUM LEVEL 137 MEQ/L (136-145); TOTAL PROTEIN 6.9 GM/DL (6.4-8.2)
[2020-09-06] MEDS ORDERED: KETOROLAC 30 MG/ML 1ML VIAL IV ONE (04:45)
--- NOTE | 2020-09-06 05:21 | REPVR ---
PROCEDURE INFORMATION: Exam: CT Abdomen And Pelvis Without Contrast Exam date and time: 09/06/2020 2:48 AM Age: 35 years old Clinical indication: Abdominal pain; Flank; Right; Prior surgery; Surgery date: Post-operative (0-2 days); Surgery type: Lithotripsy; Additional info: Right flank pain- recent stone TECHNIQUE: Imaging protocol: Computed tomography of the abdomen and pelvis without contrast. Radiation optimization: All CT scans at this facility use at least one of these dose optimization techniques: automated exposure control; mA and/or kV adjustment per patient size (includes targeted exams where dose is matched to clinical indication); or iterative reconstruction. COMPARISON: CT ABD PELVIS W/O CONTRAST 08/17/2020 10:45 PM FINDINGS: Liver: Normal. No mass. Gallbladder and bile ducts: Normal. No calcified stones. No ductal dilation. Pancreas: Normal. No ductal dilation. Spleen: Normal. No splenomegaly. Adrenal glands: Normal. No mass. Kidneys and ureters: Residual moderate right hydroureteronephrosis. Previously seen distal right ureteral calculus is no longer identified. Right perinephric fat stranding. Stomach and bowel: Unremarkable. No obstruction. No mucosal thickening. Appendix: Status post appendectomy. Intraperitoneal space: Unremarkable. No free air. No significant fluid collection. Vasculature: Unremarkable. No abdominal aortic aneurysm. Lymph nodes: Unremarkable. No enlarged lymph nodes. Urinary bladder: Unremarkable as visualized. Reproductive: Status post bilateral fallopian tube ligation. Bones/joints: Mild facet arthropathy in lower lumbar spine. Soft tissues: Bilateral saline breast. IMPRESSION: Residual moderate right hydroureteronephrosis. Previously seen distal right ureteral calculus is no longer identified. Electronically signed by: Robi Reza On 09/06/2020 05:21:01 AM
[2020-09-06 06:00] LABS: RSV AMPLIFICATION NEGATIVE (NEGATIVE)
[2020-09-06] MEDS ORDERED: ONDA4TAB6 PO (06:17)
[2020-09-06] MEDS ORDERED: FLOM0.4C39 PO (06:17)
[2020-09-06] MEDS ORDERED: PERC5TAB12 PO (06:17)
[2020-09-06] MEDS ORDERED: KETO10TAB PO (06:17)
[2020-09-06] MEDS ORDERED: DILA2TAB6 PO (06:17)
[2020-09-06] MEDS ORDERED: SENO8.6T10 PO (06:19)
[2020-09-06 07:41] VITALS: BP 122/74
== END 2020-09-06 07:49 | disposition home or self-care (01) ==
LOC: M ED 01:49
DX: N13.2 Hydronephrosis with renal and ureteral calculous obstruction (principal)
CPT/HCPCS: 74176; 80048; 80076; 81001; 83605; 83690; 85025; 87631; 93041; 96361; 96374; 96375; 99285; J1170; J1885; J2405

== ENCOUNTER → 2021-02-01 | Outpatient (CLI) | payer OTHER ==
[~2021-02-01] MED LIST changes: -CEFD1CAP8 PO; +CEFD300C41 PO; +DILA2TAB6 PO; +SENO8.6T10 PO
[2021-02-01 13:36] LABS: ALBUMIN 4.4 GM/DL (3.2-5.2); BILIRUBIN,DIRECT 0.1 MG/DL (0.0-0.2); BILIRUBIN,TOTAL 0.5 MG/DL (0.2-1.0); TOTAL PROTEIN 7.2 GM/DL (6.4-8.2)
== END ==
LOC: M LAB 12:24
PROVIDERS: ATTEND Family Medicine
DX: B35.1 Tinea unguium (principal)

== ENCOUNTER → 2021-08-06 | Outpatient (REF) ==
[2021-08-06 10:46] LABS: RSV AMPLIFICATION NEGATIVE (NEGATIVE)
== END ==
LOC: M LABSMTC 09:20
PROVIDERS: ATTEND Family Medicine
DX: Z20.822 Contact with and (suspected) exposure to COVID-19 (principal)

== ENCOUNTER → 2021-08-08 | Outpatient (REF) | LOC: M LABSMTC 09:45 | PROVIDERS: ATTEND Family Medicine | DX: Z20.828 Contact with and (suspected) exposure to other viral communicable diseases (principal) ==

== ENCOUNTER → 2021-10-29 | Outpatient (REF) | LOC: M EMP 15:14 | PROVIDERS: ATTEND Family Medicine | DX: Z20.822 Contact with and (suspected) exposure to COVID-19 (principal) ==

== ENCOUNTER → 2022-03-17 | Outpatient (CLI) | payer OTHER | LOC: M RAD 14:44 | PROVIDERS: ATTEND Nurse Practitioner Family | DX: R07.9 Chest pain, unspecified (principal) ==

== ENCOUNTER → 2022-05-22 | Outpatient (REF) | payer OTHER | LOC: M LAB REF 16:17 | PROVIDERS: ATTEND Physician Assistant | DX: J02.9 Acute pharyngitis, unspecified (principal) ==

== ENCOUNTER → 2023-05-28 | Outpatient (CLI) | payer OTHER ==
[~2023-05-28] MED LIST changes: +CEFD1CAP9 PO; -CEFD300C41 PO
== END ==
LOC: M RAD 15:03
PROVIDERS: ATTEND Nurse Practitioner Family
DX: M79.632 Pain in left forearm (principal)

== ENCOUNTER → 2023-12-31 | Outpatient (REF) ==
[~2023-12-31] MED LIST changes: +ONDA-282 PO; -ONDA4TAB6 PO
== END ==
LOC: M EMP 12:20
PROVIDERS: ATTEND Family Medicine
DX: Z11.52 Encounter for screening for COVID-19 (principal)

== ENCOUNTER → 2024-02-19 | Outpatient (REF) | payer OTHER | LOC: M LAB REF 08:39 | PROVIDERS: ATTEND Nurse Practitioner Family | DX: R19.7 Diarrhea, unspecified (principal) ==

== ENCOUNTER → 2024-02-26 | Outpatient (CLI) | payer OTHER ==
[2024-02-26 08:19] LABS: BASO # 0.1 10^3/uL (0.0-0.2); BASO % 0.8 % (0.0-1.0); EOS # 0.1 10^3/uL (0.0-0.5); HEMATOCRIT 40.8 % (36.0-47.0); HEMOGLOBIN 14.1 g/dl (12.0-15.5); LYMPH # 1.5 10^3/uL (1.5-5.0); LYMPH % 25.8 % (24.0-44.0); MEAN CORPUSCULAR HGB CONC 34.6 g/dl (32.0-36.5); MEAN CORPUSCULAR VOLUME 98.3 fl (80.0-96.0); MONO # 0.5 10^3/uL (0.0-0.8); MONO % 8.4 % (2.0-8.0); NEUTROPHILS # 3.7 10^3/uL (1.5-8.5); NEUTROPHILS % 62.7 % (36.0-66.0); PLATELET COUNT, AUTOMATED 346 10^3/uL (150-450); RED BLOOD COUNT 4.15 10^6/uL (4.00-5.40); WHITE BLOOD COUNT 5.9 10^3/uL (4.0-10.0)
[2024-02-26 08:47] LABS: ALBUMIN 4.2 G/DL (3.2-5.2); ALKALINE PHOSPHATASE 63 U/L (35-104); ALT/SGPT 20 U/L (7.0-40); AST/SGOT 21 U/L (<34); BILIRUBIN,TOTAL 0.6 MG/DL (0.3-1.2); BLOOD UREA NITROGEN 11 MG/DL (9-23); CARBON DIOXIDE LEVEL 25 MMOL/L (20-31); CHLORIDE LEVEL 107 MMOL/L (98-107); CREATININE FOR GFR 0.86 MG/DL (0.55-1.30); GLOMERULAR FILTRATION RATE > 60.0 (>58); GLUCOSE, FASTING 117 MG/DL (60-100); MAGNESIUM LEVEL 1.7 MG/DL (1.8-2.4); POTASSIUM SERUM 3.6 MMOL/L (3.5-5.1); SODIUM LEVEL 139 MMOL/L (136-145); TOTAL PROTEIN 7.1 G/DL (5.7-8.2)
== END ==
LOC: M LAB 07:54
PROVIDERS: ATTEND Nurse Practitioner Family
DX: R19.7 Diarrhea, unspecified (principal)

== ENCOUNTER → 2024-03-05 | Outpatient (REF) | payer OTHER | LOC: M LAB REF 06:36 | PROVIDERS: ATTEND Nurse Practitioner Family | DX: R19.7 Diarrhea, unspecified (principal) ==

== ENCOUNTER → 2024-03-07 | Outpatient (CLI) | payer OTHER ==
[2024-03-07 12:19] LABS: BASO % 0.6 % (0.0-1.0); EOS # 0.1 10^3/uL (0.0-0.5); EOS % 1.9 % (0.0-3.0); HEMATOCRIT 41.9 % (36.0-47.0); HEMOGLOBIN 13.8 g/dl (12.0-15.5); LYMPH # 1.7 10^3/uL (1.5-5.0); LYMPH % 25.9 % (24.0-44.0); MEAN CORPUSCULAR HGB CONC 32.9 g/dl (32.0-36.5); MEAN CORPUSCULAR VOLUME 100.2 fl (80.0-96.0); MONO # 0.5 10^3/uL (0.0-0.8); MONO % 7.9 % (2.0-8.0); NEUTROPHILS # 4.1 10^3/uL (1.5-8.5); NEUTROPHILS % 63.5 % (36.0-66.0); PLATELET COUNT, AUTOMATED 315 10^3/uL (150-450); RED BLOOD COUNT 4.18 10^6/uL (4.00-5.40); WHITE BLOOD COUNT 6.5 10^3/uL (4.0-10.0)
[2024-03-07 12:35] LABS: BLOOD UREA NITROGEN 10 MG/DL (9-23); CALCIUM LEVEL 9.2 MG/DL (8.5-10.1); CARBON DIOXIDE LEVEL 28 MMOL/L (20-31); CHLORIDE LEVEL 107 MMOL/L (98-107); CREATININE FOR GFR 0.71 MG/DL (0.55-1.30); GLOMERULAR FILTRATION RATE > 60.0 (>58); GLUCOSE, FASTING 94 MG/DL (60-100); MAGNESIUM LEVEL 1.9 MG/DL (1.8-2.4); POTASSIUM SERUM 4.3 MMOL/L (3.5-5.1); SODIUM LEVEL 142 MMOL/L (136-145)
[2024-03-09 02:32] LABS: TISSUE TRANSGLUTAMINASE IgA < 1.0 U/mL (<15.0); TISSUE TRANSGLUTAMINASE IgG < 1.0 U/mL (<15.0)
== END ==
LOC: M LAB 10:44
PROVIDERS: ATTEND Nurse Practitioner Family
DX: R19.7 Diarrhea, unspecified (principal)